=== PATIENT | male | born 1945 | race Caucasian/White ===

== ENCOUNTER → 2016-10-23 | Day surgery (SDC) | payer OTHER ==
[~2016-10-23] MED LIST: BUPIVACAINE/EPINEPHRINE 0.25% 50 ML VIAL ONE; KETOROLAC TROMETHAMINE 30 MG/ML (IVP) VIAL IV PUSH ONE; LACTATED RINGER'S 1000 ML INJ 1,000 ML ONE; MIDAZOLAM HCL 2 MG/2 ML VIAL ONE; ONDANSETRON HCL 4 MG/2 ML VIAL IV PUSH ONE; PROPOFOL 500 MG/50 ML BTL IV ONE; ceFAZolin 2 GM PREMIX 50 ML ONE
--- NOTE | 2016-10-23 10:07 | TN ---
cc: YOBANI PABLO DATE OF SURGERY 10/23/2016 PREOPERATIVE DIAGNOSIS 1. Skin nodules of unknown behavior of the right clavicle 5 mm. 2. Melanoma in situ of right shoulder POSTOPERATIVE DIAGNOSIS 1. Skin nodules of unknown behavior of the right clavicle 5 mm. 2. Melanoma in situ of right shoulder PROCEDURE 1. Excisional biopsy of right clavicle skin lesion with simple closure 2 cm x 1 cm elliptical wound 2. Wide excision of right shoulder melanoma in situ with layered closure of 6 cm x 2 cm elliptical wound on the right shoulder. ATTENDING SURGEON Yobani Pablo MD [employer] IN[employer]IGATOR Medical student, [employer] ANESTHESIA TIVA and local anesthetic BLOOD LOSS Less than 10 cc. COMPLICATIONS None FINDINGS Grossly negative margins at both excision sites. INDICATIONS FOR PROCEDURE The patient is a 70-year-old male with recently diagnosed melanoma in site on the right shoulder and also a lesion he states has enlarged in size since he was referred from his sub acute care nurse over his right clavicle. The risks, benefits, and alternatives to excisional biopsy right clavicle lesion as well as the melanoma in situ wide excision were discussed with the patient and he agreed to undergo the procedure. PROCEDURE The patient taken to the operating much at [facility] and placed TIVA sedation in the operating suite. The patient's right clavicle, shoulder and upper arm were prepped and draped in a sterile fashion. Time-out was performed. Local anesthetic was instilled at both sites. We excised the clavicle nodule 1 cm x 2 cm elliptical incision with at 15 blade scalpel. We got excellent hemostasis with the Bovie electrocautery. We closed this with a 3-0 Vicryl followed by 4-0 Monocryl and Dermabond. We then turned our attention towards the melanoma in situ. It measured between 5 mm and 10 mm, 360 degrees around the right shoulder biopsy site. We excised this in an elliptical type fashion with the 15 blade scalpel. We used the Bovie electrocautery to dissect through the subcutaneous tissue down to the fascia of the deltoid muscle. We then marked this with a stitch proximal at 12 o'clock towards the neck and sent this as permanent processing. We had excellent hemostasis with the Bovie electrocautery. We did do some very minor undermining approximately 1 cm on either side to facilitate good cosmetic closure. We closed the skin with deep dermal 2-0 Vicryl sutures, followed by 4-0 Monocryl and Dermabond. The patient, at this point in time, was discontinued from TIVA and anesthesia and taken to the PACU in stable condition. The patient tolerated the procedure well with no apparent complications. All counts were correct and I was present and scrubbed for the entire procedure. MD JADA Somers/MARIO /9:35 AM /9:41 AM
== END | disposition home or self-care (01) ==
LOC: ESDC 06:52
PROVIDERS: ATTEND Surgery
DX: D03.61 Melanoma in situ of right upper limb, including shoulder (principal); D48.0 Neoplasm of uncertain behavior of bone and articular cartilage
CPT/HCPCS: 00400; 11402; 11606; 12032; 88305; J0690; J1885; J2250; J2405; J3010; J7120